=== PATIENT | male | born 1985 | race Caucasian/White ===

== ENCOUNTER 2017-07-03 16:25 | Emergency (ER) | payer BC ==
[~2017-07-03] VITALS: Ht 170.2 cm; Wt 81.6 kg
[~2017-07-03 16:25] MED LIST: NOMEDS
--- NOTE | 2017-07-03 16:52 | Emergency Room Report ---
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 N Clinical Suspician of Infection? N Mental Status: 1 - Regular (Normal Baseline) Sepsis Risk:Low Sepsis Risk Have you (or family members/close friends) recently traveled outside the [place]? N If Yes, where/when: Have you had exposure to infectious disease within the past month? N TB? Other? Specify: Comment The patient has a LEFT suprapubic abdominal pain and LEFT flank pain that started today associated with diaphoresis. He also has had urinary frequency today. No visible hematuria. No fever. Symptoms are similar to one previous kidney stone that he has had. He took ibuprofen for it and the pain has markedly decreased, currently only has a sensation of pressure. ALLERGIES Coded Allergies: No Known Allergies (07/03/17) Home Medications Reported Medications No Home Medications (NO HOME MEDICATIONS) History Medical History General Angina: No CT: No Hypertension? No Hyperlipidemia? No COPD? No Asthma? No CVA? No Seizures? No Diabetes? No GB Disease: No MRSA? No TB? No Cancer? No Immunization Hx DT/Tetanus 05/12/12 Surgical Hx Previous Surgery?Y HEMORRHOID Social History Smoking Hx Smoker: Never Smoker Tobacco: No Alcohol Alcohol: No Review of Systems All Other Systems Reviewed and Negative Constitutional diaphoresis, denies fever Gastrointestinal abdominal pain, denies vomiting Genitourinary frequency. denies: hematuria. Musculoskeletal back pain Physical Exam Vital Signs Vital Signs Date Time Temp Pulse Resp B/P Pulse O2 O2 Flow FiO2 Ox Delivery Rate 07/03 1748 97.9 70 18 139/72 97 07/03 1731 97.9 70 18 139/72 97 07/03 1629 97.9 70 18 170/100 97 General Appearance normal appearance, WD/WN Eye Exam - bilateral eye normal exam, bilateral eye PERRL, bilateral eye EOMI Ear, Nose, Throat hearing grossly normal, normal ENT inspection Neck normal inspection Respiratory Status Yes: trachea midline, chest symmetrical. No: respiratory distress. Lung Sounds bilateral: normal breath sounds, lungs clear. Cardiovascular normal exam, regular rate/rhythm, no peripheral edema, no gallop, no JVD, no murmur, no rub, normal peripheral pulses Gastrointestinal normal bowel sounds, normal exam, non tender, soft, no organomegaly Back no CVA tenderness Extremities normal inspection Neurologic alert, oriented x 3 Mental status normal mood/affect Skin intact, normal color, warm/dry Medical Decision Making LABS/Meds/Orders Pt receiving controlled substance in ED? Yes Arnie was queried for this patient? Yes Comment [id number] rxs. Results/Orders Laboratory Tests 07/03/171644: Amylase 42, Lipase 186 07/03/171644: Sodium 140, Potassium 3.6, Chloride 103, Carbon Dioxide 34 H, BUN 13, Creatinine 1.1, Estimated Creat Clear 112, Estimated GFR (MDRD) 78, Glucose 117 H, Calcium 8.8, Total Bilirubin 0.3, AST 18, ALT 37, Alkaline Phosphatase 113, Total Protein 7.5, Albumin 4.0, Globulin 3.5 H, Albumin/Globulin Ratio 1.1, WBC 8.3, RBC 5.41, Hgb 15.6, Hct 45.5, MCV 84.0, RDW 12.7, Plt Count 234, MPV 7.5, Gran % 63.6, Gran # 5.3, Lymphocytes % 28.8, Monocytes % 4.6, Eosinophils % 2.5, Basophils % 0.4, Lymphocytes # 2.4, Monocytes # 0.4, Eosinophils # 0.2, Basophils # 0.0, PUBS MCHC 34.4, MCH 28.9, Urine Color YELLOW, Urine Appearance TURBID, Urine pH 7.5, Ur Specific [place] 1.020, Urine Protein NEGATIVE, Urine Ketones NEGATIVE, Urine Blood 3+ H, Urine Nitrate NEGATIVE, Urine Bilirubin NEGATIVE, Urine Urobilinogen 1.0, Ur Leukocyte Esterase NEGATIVE, Urine RBC 20- 50, Urine WBC 3-5, Ur Squamous Epith Cells OCC, Urine Bacteria 4+, Urine Mucus 1 +, Urine Glucose NEGATIVE Current Medication Orders Sig/Valentino Start time Last Medication Dose Route Stop Time Status Admin Sodium Chloride 10 ML PRN PRN 07/03 1645 DCD IV 07/04 1636 Orders Procedure Date/time Status DIET-NOTHING BY MOUTH 07/03 D Active GEN NSG/PT REQ (NOT FOR MEDS!) 07/[address] ABD/PELVIS REQ 07/03 1650 Complete LIPASE 07/03 1650 Complete AMYLASE 07/03 1650 Complete CULTURE, URINE 07/03 1645 Active IV SALINE LOCK 07/03 1636 Active URINALYSIS/COMPLETE 07/03 1636 Complete CBC WITH AUTO DIFF 07/03 1636 Complete CHEM 12 PROFILE 07/03 1636 Complete XRAY/CT/US XRAY/CT/US CT abdomen, pelvis Comment CT scan interpreted by radiologist: 3 mm LEFT distal ureteral stone with mild obstructive uropathy. Nonobstructing RIGHT nephrolithiasis. Departure Departure Disposition DC Home or Self Care(routine) Clinical Impression Primary Impression: Left ureteral calculus Condition STABLE Referrals Yehuda ESPINO,Ricardo Cobb Patient Instructions DI for Kidney Stones Additional Instructions Additional instructions for KIDNEY STONE (URETERAL CALCULUS): Strain your urine and save any stones. See your physician as soon as possible for further evaluation. Return immediately if you develop a fever or have uncontrollable vomiting or uncontrollable pain. What is known about DIET and KIDNEY STONES: Most kidney stones contain calcium oxalate. The logical assumption would be that you should avoid calcium and oxalate in your diet. Contrary to what you would think, this is not necessarily the case. What is actually recommended for kidney stone prevention is a diet that contains MODERATELY HIGH AMOUNTS OF CALCIUM and is LOW IN SODIUM with PLENTY OF FLUIDS. Avoiding oxalate containing foods is recommended by some experts, but is controversial. Following the DASH (Dietary Approaches to Stop Hypertention) has been shown to significantly reduce the incidence of kidney stones. The DASH diet encourages you to reduce the sodium in your diet and eat a variety of foods rich in nutrients that help lower blood pressure, such as potassium, calcium and magnesium. Recommendations: Fluids: It is widely agreed upon that you need to drink plenty of fluids. A minimum would be 8-10 glasses (8 oz each) of fluid per day. Some experts recommend as much as 14-15 glasses a day. Sodium: The way to lower calcium in your urine is to lower your sodium intake. Try not to get more than 1500 mg a day. Calcium: Dietary calcium prevents absorption of oxalate. Make sure you get about 1000 to 1200 mg a day. You can get enough calcium from dairy products without taking supplements. Do not overdo it. Calcium should be ingested with meals, not in between meals. You need to get your calcium at mealtime to decrease the absorption of oxalate from other foods. Oxalate: Although some experts recommend avoiding oxalate in your diet, there have been no studies that prove this works. Eating more calcium will reduce oxalate absorption, and is probably all that is needed to reduce oxalate in your urine. Oxalate containing foods are generally good for you in all other respects - leafy greens, nuts, etc... So avoiding them unnecessarily might not be the best thing for your health. If you want to do something to avoid oxalate , avoid spinach and rhubarb - those are extremely high in oxalate (or at least eat a high calcium meal with these). ALSO: If you retrieve your stone by straining your urine, take it to your physician for stone analysis, which can help tailor your dietary recommendations. For further reading, check out the [facility] web page about the kidney stone diet: [email or web address] Additional instructions for CONTROLLED SUBSTANCES: You have been prescribed a medication that is a controlled substance. Controlled substances include pain medications known as opiates and sedative nerve medications known as benzodiazepines. Some common opiates include: Codeine (such as Tylenol #3) Hydrocodone (Vicodin, Lortab, Lorcet, Sinclair) Oxycodone (Percocet, Percodan, Oxycodone, Oxy IR) Some common benzodiazepines include: Diazepam (Valium) Lorazepam (Ativan) Alprazolam (Xanax) Clonazepam (Klonopin) Oxazepam (Serax) All of these controlled substances are highly addictive and frequently abused. Misuse can and frequently does lead to addiction as well as overdose and . Short term supplies, 3 days or less, are prescribed because of the highly addictive nature of the medication. Any of the controlled substance medication NOT taken should be disposed of properly and NOT SAVED. The recommended method of disposing of unused medications is: Place the medicines in a sealable plastic bag. If the medicine is a solid, crush it or add water to dissolve it. Add something undesirable (cat litter, coffee grounds, etc.) Dispose of sealed bag in household trash Do not flush or pour unused medicines down a sink or drain. Also, because of the addictive nature and frequent abuse, these medications are sometimes stolen. These medications should be kept in a safe place where they cannot be stolen. Do not keep them in your car or purse. Lost or stolen prescriptions for controlled substances WILL NOT BE REFILLED in this emergency department, regardless of whether a police report was filed. Prescriptions Current Visit Scripts TAMSULOSIN HCL (Flomax 0.4MG) 0.4 MG PO QHS #14 CAP OXYCODONE HCL/ACETAMINOPHEN (Percocet 5-325 MG Tablet) 1 TAB PO Q6HP PRN pain #12 TAB Ondansetron (Zofran 4MG Odt) 4 MG PO Q8HP PRN NAUSEA AND VOMITING #10 ODT ED Critical Care Critical Care No at [id number]
[2017-07-03 16:55] LABS: HEMOGLOBIN 15.6 g/dL (14.1-18.0); LYMPH # 2.4 K/mm3 (0.7-4.5); LYMPH % 28.8 % (10-50)
[2017-07-03 16:56] LABS: URINE BILIRUBIN - DIPSTICK NEGATIVE (NEG); URINE BLOOD 3+ (NEG)
[2017-07-03 17:03] LABS: URINE SQUAMOUS CELLS OCC #/hpf (OCC)
--- NOTE | 2017-07-03 17:34 | RADIOLOGY REPORT PS360 ---
CT ABD PELVIS W/O CONTRAST CLINICAL INDICATION: Left flank pain ABD PAIN ORDERING PHYSICIAN: Ben Holland MD PATIENT AGE: 31 years COMPARISON: 11/08/2012 TECHNIQUE: Axial images obtained with sagittal and coronal reformats. PROCEDURE: Oral Contrast: None IV Contrast: None . FINDINGS: Lung bases are clear. The liver, gallbladder, pancreas, spleen, and adrenal glands are unremarkable. There are nonobstructing punctate right renal calculi. There is mild left hydronephrosis and hydroureter secondary to a 3 mm stone in the distal left ureter just proximal to the ureterovesical junction. Urinary bladder has an unremarkable appearance. Unremarkable appendix. No evidence of diverticulitis. No intestinal obstruction or free air is evident. There are few scattered small lymph nodes in the mesentery's which is nonspecific. No acute bony anomalies. IMPRESSION: 1. 3 mm left distal ureteral stone with mild obstructive uropathy. 2. Nonobstructing right nephrolithiasis
[2017-07-03] MEDS ORDERED: PERCOCET1 TAB PO (17:43)
[2017-07-03] MEDS ORDERED: ZOFRAN ODT4 MG PO (17:43)
[2017-07-03] MEDS ORDERED: FLOMAX 0.4MG C0.4 MG PO (17:43)
[2017-07-03 17:48] VITALS: BP 139/72
== END 2017-07-03 17:49 | disposition home or self-care (01) ==
LOC: ER 16:25
PROVIDERS: Emergency Medicine
DX: N20.9 Urinary calculus, unspecified (principal)